=== PATIENT | male | born 1990 | race Caucasian/White ===

== ENCOUNTER 2017-07-04 12:19 | Emergency (ER) | payer BC, OTHER ==
[~2017-07-04] VITALS: Ht 182.9 cm; Wt 109.9 kg
[2017-07-04 12:31] VITALS: TEMP 37.1
[2017-07-04 12:43] VITALS: O2SAT 97
--- NOTE | 2017-07-04 12:54 | EMERGENCY ROOM VISIT NOTE ---
History Report prepared by Tamanna: Jaxson Lopez Under the Supervision of: Dr. Steve Brown M.D. First contact with patient: 12:40 Chief Complaint: TACHYCARDIA Stated Complaint: LIGHTHEADED, HEART RACING, FEELING LIKE PASSINGOUT History of Present Illness The patient is a 26 year old white male with no pertinent past medical history who presents to the ED with a cc of an episode of lightheadedness beginning earlier today. Positive heart racing, sweats. Negative chest pain, cough, fevers , chills, nausea, vomiting, eating or drinking difficulties. He says that he was hunting this morning, and after shooting a deer, he was walking and says that he started to feel lightheaded and that he was going to pass out. He notes that his heart then started to race. He says that the heart racing subsided shortly afterward, but he continued to have waxing and waning lightheadedness. The patient notes that he feels a lot better currently. He states that this has never happened before. He says that he has no immediate family history of heart attacks. He notes that he drinks coffee regularly but no other caffeinated drinks. Source of History: patient Onset: Earlier today Position: other (global - lightheadedness) Quality: other (felt like passing out) Timing: other (episode) Associated Symptoms: + diaphoresis, No LOC, No fevers, No chills, No cough, No chest pain, No nausea Note: Associated symptoms: Heart racing which has subsided. Review of Systems See HPI for pertinent positives and negatives. A total of ten systems were reviewed and were otherwise negative. Past Medical & Surgical Family History No pertinent family history Social History Smoking Status: Never Smoker Alcohol Use: occasionally Drug Use: none Marital Status: single Occupation Status: employed Allergies Coded Allergies: No Known Allergies (Unverified , 07/04/17) Physical Exam Vital Signs Date Time Temp Pulse Resp B/P (MAP) Pulse Ox O2 Delivery O2 Flow Rate FiO2 07/04/17 15:07 70 18 140/78 98 07/04/17 13:41 82 18 147/92 97 Room Air 07/04/17 12:50 93 07/04/17 12:46 95 Room Air 07/04/17 12:43 97 Room Air 07/04/17 12:31 37.1 92 18 143/93 97 Room Air 07/04/17 12:31 97 Room Air Physical Exam GENERAL: Awake, alert, well-appearing, NAD HENT: Normocephalic, atraumatic. EYES: Normal conjunctiva. Sclera non-icteric. NECK: Supple. No nuchal rigidity. FROM. RESPIRATORY: CTAB, no rhonchi, wheezing, crackles CARDIAC: RRR, no MRG ABDOMEN: Soft, NTND, BS+ MSK: No chest wall TTP, no LE edema NEURO: GCS 15, CN 2-12 intact, moves all 4s on command SKIN: No rash or jaundice noted. Medical Decision & Procedures ER Provider Diagnostic Interpretation: X-ray: Per my interpretation, radiologist review. CHEST ONE VIEW PORTABLE CLINICAL HISTORY: EVALUATE WEAKNESS mental status change COMPARISON STUDY: No previous studies for comparison. FINDINGS: The bones soft tissues and hemidiaphragms are normal. The cardiomediastinal silhouette is normal. The lungs are clear. The pulmonary vasculature is normal. IMPRESSION: Negative chest. The above report was generated using voice recognition software. It may contain grammatical, syntax or spelling errors. Electronically signed by: Benitez Marroquin M.D. 07/04/2017 1:48 PM Dictated Date/Time: 07/04/2017 1:48 PM Laboratory Results 07/04/17 13:15 Red Blood Count 5.08, Mean Corpuscular Volume 84.3, Mean Corpuscular Hemoglobin 30.7, Mean Corpuscular Hemoglobin Concent 36.4, Mean Platelet Volume 9.0, Neutrophils (%) (Auto) 82.8, Lymphocytes (%) (Auto) 11.1, Monocytes (%) (Auto) 5.6, Eosinophils (%) (Auto) 0.1, Basophils (%) (Auto) 0.1, Neutrophils # (Auto) 6.07, Lymphocytes # (Auto) 0.81, Monocytes # (Auto) 0.41, Eosinophils # (Auto) 0.01, Basophils # (Auto) 0.01 07/04/17 13:15 Test 07/04/17 13:15 White Blood Count 7.33 K/uL (4.8-10.8) Red Blood Count 5.08 M/uL (4.7-6.1) Hemoglobin 15.6 g/dL (14.0-18.0) Hematocrit 42.8 % (42-52) Mean Corpuscular Volume 84.3 fL (80-100) Mean Corpuscular Hemoglobin 30.7 pg (25-34) Mean Corpuscular Hemoglobin Concent 36.4 g/dl (32-36) Platelet Count 253 K/uL (130-400) Mean Platelet Volume 9.0 fL (7.4-10.4) Neutrophils (%) (Auto) 82.8 % Lymphocytes (%) (Auto) 11.1 % Monocytes (%) (Auto) 5.6 % Eosinophils (%) (Auto) 0.1 % Basophils (%) (Auto) 0.1 % Neutrophils # (Auto) 6.07 K/uL (1.4-6.5) Lymphocytes # (Auto) 0.81 K/uL (1.2-3.4) Monocytes # (Auto) 0.41 K/uL (0.11-0.59) Eosinophils # (Auto) 0.01 K/uL (0-0.5) Basophils # (Auto) 0.01 K/uL (0-0.2) RDW Standard Deviation 39.3 fL (36.4-46.3) RDW Coefficient of Variation 12.9 % (11.5-14.5) Immature Granulocyte % (Auto) 0.3 % Immature Granulocyte # (Auto) 0.02 K/uL (0.00-0.02) Prothrombin Time 10.9 SECONDS (9.0-12.0) Prothromb Time International Ratio 1.0 (0.9-1.1) Activated Partial Thromboplast Time 26.8 SECONDS (21.0-31.0) Partial Thromboplastin Ratio 1.0 Anion Gap 7.0 mmol/L (3-11) Est Creatinine Clear Calc Drug Dose 117.4 ml/min Estimated GFR () 94.8 Estimated GFR (Non- 81.8 BUN/Creatinine Ratio 9.9 (10-20) Calcium Level 8.9 mg/dl (8.5-10.1) Magnesium Level 2.1 mg/dl (1.8-2.4) Thyroid Stimulating Hormone (TSH) 1.090 uIu/ml (0.300-4.500) Laboratory results reviewed by me Medications Administered Medications (Trade) Dose Ordered Sig/Yas Route Start Time Stop Time Status Last Admin Dose Admin Sodium Chloride 1,000 ml @ 999 mls/hr Q1H1M STAT IV 07/04/17 13:03 07/04/17 14:03 DC 07/04/17 13:40 999 MLS/HR ECG Indication: tachycardia Rate (beats per minute): 88 Rhythm: normal sinus Findings: T-wave inversion (isolated in lead 3), no ectopy, other (normal intervals, normal axis, no other STS changes or TWI) ED Course 1255: The patient was evaluated in room A2. A complete history and physical exam was performed. Medical Decision The patient is a 26 year old white male with no pertinent past medical history who presents to the ED with a cc of an episode of lightheadedness beginning earlier today. Positive heart racing, sweats. Negative chest pain, cough, fevers , chills, nausea, vomiting, eating or drinking difficulties. Differential diagnosis: Etiologies such as premature contractions, electrolyte abnormality, cardiac dysrhythmia, thyroid dysfunction, pulmonary embolism, infection, gastrointestinal, as well as others were entertained. Patient eval'ed at bedside. Patient asymptomatic now but felt racing heart earlier while hunting deer. Patient does use coffee but denies supplements, tobacco, or drugs. Occasional social drinking. No family h/o irregular heart rhythm, hyperthyroidism, or SCD w/ unknown cause. Patient had EKG, CXR, labs completed. All fairly unremarkable. EKG non-ischemic no noted arrythmia. CXR clear. Electrolytes WNL. Patient tolerated PO. Told to make sure to find good ways to relieve stress - 9 months and is due soon - avoid alcohol , tobacco, drugs, stimulatns, and caffeine. Maintain good hydration, healthy diet and exercise. F/u w/ PCP and discuss if continued symptoms w/ cards for possible holter. At this point, patient informed of findings. Patient deemed safe for oupatient trx and follow up. Given instructions for shoulder sprain/ pain at home.Patient given f/u, d/c, and return precautions. Patient agreed w/ POC, all questions answered, and patient safely d/c'ed to home. Medication Reconcilliation Current Medication List: was personally reviewed by me Blood Pressure Screening Patient's blood pressure: Elevated blood pressure Blood pressure disposition: Referred to PCP Impression Primary Impression: Palpitations Scribe Attestation The scribe's documentation has been prepared under my direction and personally reviewed by me in its entirety. I confirm that the note above accurately reflects all work, treatment, procedures, and medical decision making performed by me. Departure Information Dispostion Home / Self-Care Referrals No Doctor, Assigned (PCP) Patient Instructions Heart Palpitations, My [facility] Additional Instructions Please return to the emergency department if you have worsening or recurrent symptoms not amenable to at-home treatment. Please call for a follow-up appointment with her primary care physician. Please take your medications as prescribed. If you have other concerns and/or complaints please feel free to also call your primary care physician's office or return the ED for further evaluation, management, and treatment. Please follow up with your PCP and discuss need for cardiology follow up. Avoid stress, too much caffeine. Abstain from alcohol, tobacco, or drugs. You may take 600 mg Ibuprofen every 6 hours as needed for pain with food for no more than 2 consecutive days. You may take tylenol 1000 mg every 6 hours as needed for pain. You may take motrin and tylenol separately or at the same time. You have been examined and treated today on an emergency basis only. This is not a substitute for, or an effort to provide, complete comprehensive medical care. It is impossible to recognize and treat all injuries or illnesses in a single emergency department visit. It is therefore important that you follow up closely with [facility], your PCP, and/or your specialist(s). Call as soon as possible for an appointment. Thank you for your time and consideration. I look forward to speaking with you again soon. Please don't hesitate to call us if you have any questions.
[2017-07-04] MEDS ORDERED: SODIUM CHLORIDE 0.9% 1000ML 1,000 ML IV STA (13:03)
[2017-07-04 13:05] VITALS: Ht 182.9 cm; Wt 109.9 kg
[2017-07-04 13:26] LABS: BASO % 0.1 %; BASO ABS # 0.01 K/uL (0-0.2); COMPLETE YES; EOS % 0.1 %; HEMATOCRIT 42.8 % (42-52); IG% 0.3 %; LYMPH % 11.1 %; LYMPH ABS # 0.81 K/uL (1.2-3.4); MEAN CELL VOLUME 84.3 fL (80-100); MEAN CORPUSCULAR HEMOGLOBIN 30.7 pg (25-34); MEAN CORPUSCULAR HGB CONC 36.4 g/dl (32-36); MONO % 5.6 %; NEUT % 82.8 %; PLATELET COUNT 253 K/uL (130-400); RED BLOOD COUNT 5.08 M/uL (4.7-6.1); WHITE BLOOD COUNT 7.33 K/uL (4.8-10.8)
[2017-07-04 13:34] LABS: PROTHROMBIN TIME (PATIENT) 10.9 SECONDS (9.0-12.0)
[2017-07-04 13:46] LABS: BUN/CREATININE RATIO 9.9 (10-20); CALCIUM 8.9 mg/dl (8.5-10.1); CREATININE 1.2 mg/dl (0.60-1.40); MAGNESIUM 2.1 mg/dl (1.8-2.4); POTASSIUM 3.9 mmol/L (3.5-5.1)
--- NOTE | 2017-07-04 13:49 | DIAGNOSTIC IMAGING REPORT ---
CHEST ONE VIEW PORTABLE CLINICAL HISTORY: EVALUATE WEAKNESS mental status change COMPARISON STUDY: No previous studies for comparison. FINDINGS: The bones soft tissues and hemidiaphragms are normal. The cardiomediastinal silhouette is normal. The lungs are clear. The pulmonary vasculature is normal. IMPRESSION: Negative chest. The above report was generated using voice recognition software. It may contain grammatical, syntax or spelling errors. Electronically signed by: Benitez Marroquin M.D. 07/04/2017 1:48 PM Dictated Date/Time: 07/04/2017 1:48 PM
[2017-07-04 13:56] LABS: THYROID STIMULATING HORMONE 1.09 uIu/ml (0.300-4.500)
[2017-07-04 15:07] VITALS: BP 140/78; PULSE 70; O2SAT 98
== END 2017-07-04 15:10 | disposition home or self-care (01) ==
LOC: EDUNIT# 12:20 → C.EDB 12:20 → C.EDA 15:10
DX: R00.2 Palpitations (principal)

== ENCOUNTER 2017-10-31 21:25 | Emergency (ER) | payer OTHER ==
[~2017-10-31] VITALS: Ht 182.9 cm; Wt 111.1 kg
[2017-10-31 21:29] VITALS: TEMP 37.4; Ht 182.9 cm; Wt 111.1 kg
[2017-10-31] MEDS ORDERED: LORAZEPAM 2 MG/ML 1 ML VIAL IV STA (21:44)
[2017-10-31 21:54] LABS: BASO % 0.5 %; BASO ABS # 0.03 K/uL (0-0.2); EOS % 2.1 %; EOS ABS # 0.14 K/uL (0-0.5); HEMATOCRIT 45.3 % (42-52); HEMOGLOBIN 16.8 g/dL (14.0-18.0); IG# 0.04 K/uL (0.00-0.02); LYMPH % 33.3 %; LYMPH ABS # 2.18 K/uL (1.2-3.4); MEAN CELL VOLUME 82.5 fL (80-100); MEAN CORPUSCULAR HEMOGLOBIN 30.6 pg (25-34); MEAN CORPUSCULAR HGB CONC 37.1 g/dl (32-36); MEAN PLATELET VOLUME 8.9 fL (7.4-10.4); MONO % 10.7 %; NEUT % 52.8 %; NEUT ABS # 3.45 K/uL (1.4-6.5); PLATELET COUNT 266 K/uL (130-400); RED CELL DISTRIBUTION WIDTH CV 13.1 % (11.5-14.5); RED CELL DISTRIBUTION WIDTH SD 39.1 fL (36.4-46.3); WHITE BLOOD COUNT 6.54 K/uL (4.8-10.8)
[2017-10-31 22:00] VITALS: O2SAT 96
[2017-10-31 22:33] LABS: ALBUMIN 4.3 gm/dl (3.4-5.0); CALCIUM 9.1 mg/dl (8.5-10.1); CREATININE 1.02 mg/dl (0.60-1.40); POTASSIUM 4.1 mmol/L (3.5-5.1); TOTAL PROTEIN 7.7 gm/dl (6.4-8.2)
--- NOTE | 2017-10-31 22:43 | DIAGNOSTIC IMAGING REPORT ---
CHEST ONE VIEW PORTABLE HISTORY: 27 years-old Male CHEST PAIN acute atypical chest pain with elevated blood pressure COMPARISON: Chest radiograph 07/04/2017 TECHNIQUE: Portable AP view of the chest FINDINGS: Cardiac silhouette appears enlarged, likely secondary to hypoinflation as well as AP technique. There is mild bronchovascular crowding. No pneumothorax, pleural effusion, focal airspace consolidation or overt pulmonary edema. The bones of the chest appear grossly intact. IMPRESSION: Hypoinflation without acute process. The above report was generated using voice recognition software. It may contain grammatical, syntax or spelling errors. Electronically signed by: Andrea Abdi M.D. 10/31/2017 10:41 PM Dictated Date/Time: 10/31/2017 10:40 PM
--- NOTE | 2017-10-31 23:21 | EMERGENCY ROOM VISIT NOTE ---
History First contact with patient: 21:36 Chief Complaint: RAPID HEART RATE Stated Complaint: HEART RACING, HIGH BLOOD PRESSURE, HEADACHES History of Present Illness The patient is a 27 year old male who presents to the Emergency Room with complaints of intermittent left-sided chest pain and palpitations for the past week that lasts for a split second. No prolonged symptoms. Patient's been underneath more stress lately. He has been feeling anxious. Patient denies dyspnea, leg pain or swelling, abdominal pain, back pain, fever, chills, cough, congestion, excessive caffeine use. No drug use. No supplement use. There is a family history of heart disease. He has had no prior heart testing. No history of DVT or PE. No family history of DVT or PE. Review of Systems An 10 system review of systems was completed with positives and pertinent negatives listed in the HPI. Past Medical/Surgical History None Social History Smoking Status: Never Smoker Smokeless Tobacco Use: No Alcohol Use: occasionally Drug Use: none Marital Status: Housing Status: lives with family Occupation Status: employed Current/Historical Medications No Active Prescriptions or Reported Meds Physical Exam Vital Signs Date Time Temp Pulse Resp B/P (MAP) Pulse Ox O2 Delivery O2 Flow Rate FiO2 10/31/17 23:00 66 18 142/89 94 Room Air 10/31/17 22:30 73 20 147/91 95 Room Air 10/31/17 22:07 76 10/31/17 22:00 96 Room Air 10/31/17 22:00 96 Room Air 10/31/17 21:29 37.4 88 19 175/104 97 Room Air Physical Exam VITALS: Vitals are noted on the nurse's note and reviewed by myself. Vital signs hypertensive. GENERAL: Pleasant male anxious appearing, in no acute distress, nondiaphoretic, well-developed well-nourished. SKIN: The skin was without rashes, erythema, edema, or bruising. There is no tenting of the skin. Capillary reflex less than 2 seconds. HEAD: Normocephalic atraumatic. EARS: External auditory canals clear, tympanic membranes pearly cervantes without erythema or effusion bilaterally. EYES: Pupils equal round and reactive to light and accommodation. Conjunctivae without injection, sclerae without icterus. Extraocular movements intact. NOSE: Patent, turbinates without inflammation or discharge. No sinus tenderness. MOUTH: Mucous membranes moist. Pharynx without erythema or exudate. Uvula midline. Airway patent. Tongue does not deviate. NECK: Supple without nuchal rigidity. No lymphadenopathy. No thyromegaly. Cervical spine is nontender. No JVD. HEART: Regular rate and rhythm without murmurs gallops or rubs. LUNGS: Clear to auscultation bilaterally without wheezes, rales or rhonchi. No retractions or accessory muscle use. ABDOMEN: Positive bowel sounds x 4. Normal tympanic percussion. Soft, nontender, without masses or organomegaly. Mclean sign negative. No guarding or rebound tenderness. Odalys CVA tenderness MUSCULOSKELETAL: No muscle atrophy, erythema, or edema noted. NEURO: Patient was alert and oriented to person place and time. Normal sensation to light and sharp touch. No focal neurological deficits. Medical Decision & Procedures Laboratory Results 10/31/17 21:40 Red Blood Count 5.49, Mean Corpuscular Volume 82.5, Mean Corpuscular Hemoglobin 30.6, Mean Corpuscular Hemoglobin Concent 37.1, Mean Platelet Volume 8.9, Neutrophils (%) (Auto) 52.8, Lymphocytes (%) (Auto) 33.3, Monocytes (%) (Auto) 10.7, Eosinophils (%) (Auto) 2.1, Basophils (%) (Auto) 0.5, Neutrophils # (Auto ) 3.45, Lymphocytes # (Auto) 2.18, Monocytes # (Auto) 0.70, Eosinophils # (Auto ) 0.14, Basophils # (Auto) 0.03 10/31/17 21:40 Test 10/31/17 21:40 10/31/17 21:49 White Blood Count 6.54 K/uL (4.8-10.8) Red Blood Count 5.49 M/uL (4.7-6.1) Hemoglobin 16.8 g/dL (14.0-18.0) Hematocrit 45.3 % (42-52) Mean Corpuscular Volume 82.5 fL (80-100) Mean Corpuscular Hemoglobin 30.6 pg (25-34) Mean Corpuscular Hemoglobin Concent 37.1 g/dl (32-36) Platelet Count 266 K/uL (130-400) Mean Platelet Volume 8.9 fL (7.4-10.4) Neutrophils (%) (Auto) 52.8 % Lymphocytes (%) (Auto) 33.3 % Monocytes (%) (Auto) 10.7 % Eosinophils (%) (Auto) 2.1 % Basophils (%) (Auto) 0.5 % Neutrophils # (Auto) 3.45 K/uL (1.4-6.5) Lymphocytes # (Auto) 2.18 K/uL (1.2-3.4) Monocytes # (Auto) 0.70 K/uL (0.11-0.59) Eosinophils # (Auto) 0.14 K/uL (0-0.5) Basophils # (Auto) 0.03 K/uL (0-0.2) RDW Standard Deviation 39.1 fL (36.4-46.3) RDW Coefficient of Variation 13.1 % (11.5-14.5) Immature Granulocyte % (Auto) 0.6 % Immature Granulocyte # (Auto) 0.04 K/uL (0.00-0.02) Anion Gap 6.0 mmol/L (3-11) Est Creatinine Clear Calc Drug Dose 137.6 ml/min Estimated GFR () 114.6 Estimated GFR (Non- 98.9 BUN/Creatinine Ratio 14.5 (10-20) Calcium Level 9.1 mg/dl (8.5-10.1) Magnesium Level 2.4 mg/dl (1.8-2.4) Total Bilirubin 0.4 mg/dl (0.2-1) Direct Bilirubin 0.1 mg/dl (0-0.2) Aspartate Amino Transf (AST/SGOT) 27 U/L (15-37) Alanine Aminotransferase (ALT/SGPT) 45 U/L (12-78) Alkaline Phosphatase 76 U/L (45-117) Total Protein 7.7 gm/dl (6.4-8.2) Albumin 4.3 gm/dl (3.4-5.0) Thyroid Stimulating Hormone (TSH) 3.160 uIu/ml (0.300-4.500) Bedside D-Dimer 222 ng/mlFEU (0-450) Bedside Troponin I < 0.030 ng/ml (0-0.045) Medications Administered Medications (Trade) Dose Ordered Sig/Yas Route Start Time Stop Time Status Last Admin Dose Admin Lorazepam (Ativan Inj) 1 mg NOW STAT IV 10/31/17 21:44 3/2/18 21:46 DC 10/31/17 21:57 1 MG ED Course Prior records/ancillary studies reviewed. Triage Nursing notes reviewed. Additional history obtained from family. The patient's history was concerning for palpitations. Differential diagnosis: Etiologies such as premature contractions, electrolyte abnormality, cardiac dysrhythmia, thyroid dysfunction, pulmonary embolism, infection, gastrointestinal, as well as others were entertained. Physical examination: Benign as above. ER treatment provided: Ativan On reassessment the patient felt better. Diagnostic interpretation by me: Cardiac monitoring revealed no dysrhythmia. The electrocardiogram was negative for pathologic change. Normal sinus, normal intervals, no acute ST-T wave changes, rate of 91. Impression normal sinus rhythm interpreted by myself The labs revealed euthyroid. Negative d-dimer. Negative troponin Heart score negative Imaging studies: Chest x-ray with no acute consolidation, pneumothorax free air, no change from prior chest x-ray per my interpretation This appears to be consistent with palpitations and elevated blood pressure. Patient has been under more stress lately. He has a at home. He was strongly encouraged to get an outpatient Holter monitor for further workup for his ongoing symptoms. He was here last year with similar episode. Patient had a negative troponin. Negative d-dimer. Normal EKG. He was well-appearing. Symptoms have been ongoing for a week. No prolonged symptoms. Patient was advised to follow-up family here in a few days or here in the ER sooner for chest pain, difficulty breathing, prolonged palpitations, worsening signs or symptoms or as needed. By the evaluation outlined above emergent etiologies such as electrolyte abnormality, cardiac dysrhythmia, thyroid dysfunction, pulmonary embolism, infection, as well as others were deemed relatively unlikely. The pt informed about the findings as listed above. All questions were answered and pleased with the treatment. Return instructions were outlined and the patient was discharged in stable condition. Outpatient prescription management: Ativan Referral: The patient was referred back to their primary care physician for follow-up in 2 to 3 days for a recheck of the current condition Case reviewed with my attending The chart was completed utilizing 10X10 Room voice recognition software. Grammatical errors, random word insertions, pronoun errors, and incomplete sentences are an occassional consequence of this system due to software limitations, ambient noise, and hardware issues. Any formal questions or concerns about the content, text, or information contained within the body of this dictation should be directly addressed to the physician operating room assistant for clarification. Medical Decision As above Medication Reconcilliation Current Medication List: was personally reviewed by me Blood Pressure Screening Patient's blood pressure: Elevated blood pressure Blood pressure disposition: Referred to PCP Impression Primary Impression: Palpitations Departure Information Dispostion Home / Self-Care Condition GOOD Prescriptions No Active Prescriptions or Reported Meds Referrals No Doctor, Assigned (PCP) Patient Instructions My [facility] Additional Instructions Recommend outpatient Holter monitor. Decrease caffeine, alcohol, tobacco and salt intake. Avoid stimulants near bedtime. Ibuprofen(Motrin, Advil) may be used for fever or pain. Use 600mg every six hours as needed. Take with food. Avoid using more than 2400mg in a 24 hour period. Do not use 2400mg per day for more than three consecutive days without physician direction. Prolonged inappropriate use can lead to stomach upset or ulcers. (AND/OR) Acetaminophen(Tylenol) may be used for fever or pain. Use 1000mg every six hours as needed. Avoid using more than 3000mg in a 24 hour period. Rest and drink plenty of fluids as tolerated. Continue current medications. Avoid strenuous activities and anything that worsens your symptoms. Resume normal activities once your symptoms resolve. Return to the ER immediately for worsening or persistent prolonged palpitations , abdominal pain, vomiting, fevers, chest pains, difficulty breathing, worsening of your condition, or as needed. Follow up with your primary physician in 2-3 days for a recheck of your current condition.
[2017-10-31] MEDS ORDERED: ATIVAN 1MG HOMEPACK PO ONE (23:30)
[2017-10-31 23:37] VITALS: BP 144/78; PULSE 67; O2SAT 95
== END 2017-10-31 23:37 | disposition home or self-care (01) ==
LOC: C.EDB 21:27 → C.EDA 23:37
DX: R00.2 Palpitations (principal)